=== PATIENT | male | born 2000 ===

== ENCOUNTER 2025-03-03 21:33 | Emergency (ER) | payer OTHER, SELFPAY ==
[2025-03-03 21:38] VITALS: BP 141/93
[2025-03-03 22:19] LABS: % Basophils 1.6 % (0-2); % Eosinophils 4.1 % (0-6); % Immature Granulocytes 0.3 % (0-0.5); % Lymphocytes 30.4 % (20.5-51.1); % Monocytes 9.8 % (1.7-9.3); % Neutrophils 53.8 % (42.2-75.2); Absolute Basophils 0.1 10^3/uL (0-0.2); Absolute Eosinophils 0.3 10^3/uL (0-0.7); Absolute Lymphocytes 2.3 10^3/uL (1.2-3.4); Absolute Monocytes 0.8 10^3/uL (0.1-0.6); Absolute Neutrophils 4.1 10^3/uL (1.4-6.5); Hematocrit 43.8 % (39.0-52.0); Hemoglobin 15.3 g/dL (13.0-18.0); Mean Corp Hgb Conc. 34.9 g/dL (33.0-37.0); Mean Corpuscular Hgb 30.6 pg (27.0-31.0); Mean Corpuscular Volume 87.6 fL (80.0-94.0); Mean Platelet Volume 10.4 fL (7.4-10.4); Nucleated Red Blood Cells % 0 % (-); Platelet Count 302 10^3/uL (130-400); Red Cell Dist. Width 11.9 % (11.5-14.5); White Blood Cell Count 7.6 10^3/uL (4.8-10.8)
--- NOTE | 2025-03-03 22:32 | ED.GENMED ---
History of Present Illness
General
Chief Complaint: Chest Pain
Source: patient and significant other
Exam Limitations: none
Time Seen by Provider: 03/03/25 22:15
History of Present Illness
History of Present Illness:
Note:
CHIEF COMPLAINT(S)
Chest pain and lightheadedness.
HISTORY OF PRESENT ILLNESS
The patient is a 24-year-old male with a history of gastroesophageal reflux disease (GERD), presenting with chest pain and lightheadedness. The symptoms began with 'waves of lightheadedness' following the onset of chest pain and feeling 'really
hot.' The patient reports that the pain started after consuming spicy food, for which he took Tums. The chest pain was transient, lasting approximately 10 minutes, and was non-radiating. He described associated lightheadedness that persisted for
about three minutes and occurred multiple times. He also experienced shortness of breath while in the car, and walking around aggravated the sensation of dyspnea. He denies any hyperventilation, leg pain, or muscle cramping. Previous episodes of
GERD typically presented as throat discomfort rather than chest pain. He denies any similar episodes in the past.
EXTERNAL RECORDS REVIEWED
The patients electrocardiogram (EKG) showed no significant abnormalities.
SOCIAL HISTORY
The patient occasionally consumes tea but denies the use of caffeine in significant quantities, diet pills, energy drinks, tobacco, or recreational drugs. He works in a sedentary job and reports some stress, though not significant.
PHYSICAL EXAM
Nursing notes reviewed and vital signs reviewed. No acute findings reported.
PLAN
The plan includes blood work including a D-dimer test to evaluate for possible blood clots. Further diagnostic tests will include a chest X-ray. The patient will be monitored while awaiting results.
DIFFERENTIAL DIAGNOSIS
The Differential Diagnosis includes, in no particular order and is not limited to:
1. Gastroesophageal reflux disease (GERD)
2. Costochondritis
3. Anxiety or panic attack
4. Myocardial ischemia
5. Pulmonary embolism
6. Pneumothorax
7. Esophageal spasm
8. Atypical angina
9. Pericarditis
10. Hyperventilation syndrome
EKG
My independent EKG interpretation is:
- Rhythm: Normal-sized rhythm
- Heart Rate: 96 bpm
- Intervals: Normal
- [place]: Normal
- Abnormalities: Dominance of acute ischemia present
- No obvious morphology change noted
- Ventricular rate initially increased from 85 bpm to current 96 bpm
- No previous EKG available for further comparison
CARE-UPDATE
03/03/25 - 23:11
Patients D-dimer test returned negative. Plan to proceed with a chest X-ray for further evaluation.
CARE-UPDATE
03/03/25 - :32
The chest x-ray shows no signs of infiltrate or osseous abnormalities.
HEART:
Result Summary
0 points Low Score (0-3 points)
Risk of MACE of 0.9-1.7%.
Inputs:
History -> 0 = Slightly suspicious
EKG -> 0 = Normal
Age -> 0 = <45
Risk Factors -> 0 = No known risk factors
Initial Troponin -> 0 = <=Normal limit
Disposition:
SUMMARY OF ENCOUNTER
The patient, a 24-year-old male, presented with a brief episode of chest pain and lightheadedness. Symptoms resolved with Tums, and the patient was concerned, leading him to visit the emergency department.
DISPOSITION
The patient is discharged home in improved condition.
PLAN
Follow up with primary care provider.
INDEPENDENT REVIEW OF LABS AND INTERPRETATION OF TESTS
My independent review of the EKG is normal. Lab work, including troponin, D-dimer, and thyroid test, was normal.
MEDICAL DECISION MAKING
Chronic conditions affecting care: history of gastroesophageal reflux disease (GERD). Differential diagnoses considered included: GERD, costochondritis, anxiety or panic attack, myocardial ischemia, pulmonary embolism, esophageal spasm, among
others. Consideration of admission/observation was made due to complexity/risk. However, outpatient management is appropriate based on reassuring work-up, stable vitals, symptom control, and follow-up reliability.
PATIENT EDUCATION AND COUNSELING
Discussed discharge plan with the patient and his . They had no questions at this time.
PATHOLOGIES TO CONSIDER
Myocardial ischemia, pulmonary embolism, atypical angina.
Review of Systems
Review of Systems
Allergies reviewed?: Yes
All Other Systems: ROS reviewed and negative except as documented in HPI and ROS
Cardiac: Reports chest pain
Psychiatric: Reports anxiety
Phy Exam
General Physical Exam
General Presentation: well appearing and no apparent distress
General Skin: warm and dry
General Habitus: normal
General Mental: alert
General Hydration: appears well hydrated
ENT Exam
ENT Exam: EOMI, pharynx normal, neck supple and normocephalic
Eye Exam
Eye Exam: PERRL, cornea clear and conjunctiva normal
Cardiovascular Exam
Cardiovascular Exam: regular rate/rhythm, no edema, no murmur and normal peripheral pulses
Pulmonary Exam
Pulmonary Exam: lungs clear, no respiratory distress, no rales, no crackles, no rhonchi, no stridor, no wheezing and no cough
Gastrointestinal Exam
Gastrointestinal Exam: normal bowel sounds, non tender, soft, no organomegaly, no pulsatile mass and non distended
Neurological Exam
Neurological Exam: alert, oriented x3, no motor deficits and speech normal
Musculoskeletal Exam
Musculoskeletal Exam: full ROM and no edema
Skin Exam
Skin Exam: normal color, warm/dry, no rash and no petechia
Psychiatric Exam
Psychiatric Exam: normal mood/affect
Scores
Heart Score for Chest Pain Patients
STEMI patient?: No
History: Slightly or Non-Suspicious
ECG: Normal
Age: </= 45 years
Risk Factors: No Risk Factors
Troponin: </= Normal Limit
Heart Score for Chest Pain Patients: 0
Heart Score Risk: 2.5% MACE over next 6 weeks
Course
Orders/Labs/Results
Orders:
Orders
03/03/25 21:40
EKG [Electrocardiogram (*1)] Urgent
Reason for Study: Chest Pain
EKG- Treatment ONCE
03/03/25 22:01
Electrocardiogram (*1) Urgent
Reason for Study: Chest Pain
EKG- Treatment ONCE
03/03/25 22:10
Complete Blood Count/With Diff Urgent
Comprehensive Metabolic Panel Urgent
Troponin I Urgent
03/03/25 22:34
D-Dimer Urgent
TSH Reflex To Free T4 Urgent
03/03/25 23:10
CR Chest - 2 Views Urgent
Comment:
Reason For Exam: cp
Abnormal Lab Results
03/03/25
22:10
Absolute Monos (auto) 0.8 H 10^3/uL
(0.1-0.6)
Monocytes % 9.8 H %
(1.7-9.3)
Glucose 123 H mg/dl
(70-99)
03/03/25 22:10
03/03/25 22:10
Vital Signs
Initial and Last Documented VS:
Initial Vital Signs
Temp Pulse Resp BP Pulse Ox
98.6 F 93 16 141/93 98
03/03/25 21:38 03/03/25 21:38 03/03/25 21:38 03/03/25 21:38 03/03/25 21:38
Last Documented Vital Signs
Temp Pulse Resp BP Pulse Ox
98.6 F 85 27 111/85 95
03/03/25 21:38 03/03/25 23:19 03/03/25 23:19 03/03/25 23:45 03/03/25 23:19
*Pulse Oximetry
SaO2: 98
Oxygen Mode of Delivery: Room air
Patient hypoxic: no
*[employer] Interpretation
Rate: normal
Interpretation: normal
Rhythm: sinus
*Critical Care Note
Total Time (30-74mins, 75-104mins- exclusive of procedures): Not Applicable
ED Attending Note
-
Portions of this chart may have been created with voice recognition software.� Occasional wrong word or��sound alike� substitutions may have occurred due to the inherent limitations of voice recognition software.
Discharge Plan
Departure
Patient Disposition: Home (Routine Discharge)
Date of Disposition: 03/03/25
Time of Disposition: 23:39
Patient with high blood pressure during this ER visit?: Yes
Condition: Good
Discharge Problem:
Chest pain
Instructions: Chest Pain PCP Follow Up
Prescriptions:
No Action
No Current Medications
0
Referrals:
[facility] [Provider Group]
Laurie Ding MD [Family Provider, Internal Medicine]
Activity Restrictions/Additional Instructions:
Thank You for choosing [facility].
It was a pleasure meeting you and taking part in your care. We hope for your continued healing and wellness.
Please read discharge instructions in their entirety. However, they are for general education and may not describe your exact diagnosis at discharge. Information on your ER visit and medical conditions were discussed with you along with appropriate
follow up information...
If indicated, please take your medications as instructed and indicated on discharge paperwork.
Please schedule a follow up appointment as directed. Call to schedule an appointment
Please return to the emergency department with ANY change in, persisting, or worsening of symptoms. If any of your symptoms do not improve, or persist, or become more severe within 6-12 hours, please return to the emergency department for further
care.
Please return to the emergency department if you develop a headache, neck pain/stiffness, fever greater than 100.4F, chest pain, shortness of breath, persistent nausea, vomiting, slurred speech, difficulty walking, numbness/tingling, weakness, signs
of infection or any other symptoms that are worrisome to you.
If you have any questions or concerns please do not hesitate to call the Hospital at or E-mail me directly at [email or web address]
Interventions
Interventions:
*Risk Screen - Suicide Last Done: 03/03/25 21:38
*General Assessment Last Done: 03/03/25 21:38
*Neglect/Abuse Screening Last Done: 03/03/25 21:38
*ED- Fall Risk Assessment Last Done: 03/03/25 21:40
*ED COVID-19 Vaccine History Last Done: 03/03/25 21:40
*Nursing Disposition Last Done: 03/03/25 23:48
ED- Cardiac Assessment Last Done: 03/03/25 21:57
Discharge Date and Time
Discharge Date/Time: 03/03/25 23:48
Print Language: OCCITAN
[2025-03-03 22:48] LABS: ALT (SGPT) 44 U/L (0-50); AST (SGOT) 25 U/L (17-59); Albumin 4.9 g/dl (3.5-5.0); Alkaline Phosphatase 48 U/L (38-126); Blood Urea Nitrogen 9 mg/dl (9-20); Carbon Dioxide 30 mmol/L (22-30); Chloride 106 mmol/L (98-107); Glucose 123 mg/dl (70-99); Potassium 4.2 mmol/L (3.5-5.1); Sodium 142 mmol/L (135-145); Total Bilirubin 0.5 mg/dl (0.2-1.3); Total Protein 7.3 g/dl (6.3-8.2); eGFR > 60.00
[2025-03-03 22:58] LABS: Troponin I < 0.012 ng/ml
[2025-03-03 22:59] LABS: D-Dimer < 0.27 ug/mlFEU (0.00-0.50)
[2025-03-03 23:04] VITALS: BP 113/82
[2025-03-03 23:38] LABS: TSH Reflex To Free T4 2.23 uIU/ml (0.47-4.68)
[2025-03-03 23:45] VITALS: BP 111/85
== END 2025-03-03 23:48 | disposition home or self-care (01) ==
LOC: EMR 21:33
PROVIDERS: EMERGENCY PHYSICIAN Student in an Organized Health Care Education/Training Program; FAMILY PHYSICIAN Internal Medicine
DX: R07.89 Other chest pain (principal); R42 Dizziness and giddiness; K21.9 Gastro-esophageal reflux disease without esophagitis
CPT/HCPCS: 99283; 71046; 80053; 84443; 84484; 85025; 85379; 93005